=== PATIENT | male | born 1990 | race Caucasian/White ===

== ENCOUNTER 2022-07-17 06:55 | Inpatient (IN) ==
[2022-07-17] MEDS ORDERED: SODIUM CHLORIDE 0.9% 1000ML 1,000 ML IV STA (07:05)
[2022-07-17] MEDS ORDERED: ONDANSETRON INJ 2 MG/ML 2 ML VIAL IV STA ×2 (07:05→08:20)
[2022-07-17] MEDS ORDERED: SODIUM CHLORIDE 0.9% 1000ML 1,000 ML IV ONE (07:07)
--- NOTE | 2022-07-17 07:16 | Emergency Department Note ---
Impression & Plan Cardiac arrest, Cardiac arrest with ventricular fibrillation ED Provider Note INFORMANT: Patient and EMS ED PROVIDER(S): Warren Rooney DO CHIEF COMPLAINT: Cardiac arrest PLAN: Disposition: Admission Outpatient prescription management: none Discussion with: I spoke with the hospitalist, who will see the patient for admission/observation and further evaluation and consultation. MEDICAL DECISION MAKING: This is a 32-year-old male who presents to the ED status post cardiac arrest. History is obtained from EMS. EMS report that the patient at 0555 hrs. they were dispatched for a cardiac arrest. CPR was in progress at that time. Police arrived on scene at 6:06 AM and AED advised shock. The patient was shocked twice. When EMS arrived, he was awake but lethargic in atrial fibrillation. He was also having some frequent PVCs. They administered some Ativan 2 mg IV for agitation and lidocaine 100 mg IV. He was transported here without further incident. Per EMS, the patient has no past medical problems. The patient also denies any medical issues. He takes no medications. Previous alcohol use but none in 5 years. Per the , the patient awoke her in the middle of the night gasping for air as if he was short of breath. Short time later, he appeared to stop breathing and 911 was called. They advised to start chest compressions, which she did. Patient on my evaluation is a little somnolent although he does respond appropriately to questioning. He states that he just does not feel right when questioned what is bothering him. He does report some shortness of breath. Vital signs are stable. The patient's twelve-lead EKG here shows a nor mal sinus rhythm at a rate of 79. No ST elevations. No acute ischemic changes. Her lactic acid was elevated 4.7 likely due to transient perfusion issues. The white blood cell count is elevated at 25,000 likely related to stress. His potassium was slightly low at 3.3. Creatinine is slightly elevated 1.44, AST and ALT are slightly elevated at 203 and 286 respectively. Troponin is mildly elevated at 45. A D-dimer was elevated. CT scan of the chest did not show PE or pneumonia. CT scan of the brain did not show any acute process. Chest x-ray was negative for acute disease. The patient remained in the ED without any arrhythmias. He remained hemodynamically stable. He is awake and alert. He occasionally feels short of breath. No chest pains. I did speak with Dr. Echevarria from cardiology. He will see the patient in consultation for cardiac cath. I spoke with the hospitalist, who will see the patient for further evaluation and care as well. Triage Nursing notes reviewed. Vital Signs: reviewed Prior /Outside records reviewed: none Differential diagnosis: Arrhythmia, PE, pneumothorax, infection such as pneumonia, myocardial infarction, myocarditis, pulmonary embolism, other Diagnostics, as interpreted by me: 12 lead ECG: Normal sinus rhythm rate of 79. No ST elevation. No PVCs. Normal QTc Cardiac Monitoring ordered: Normal sinus rhythm Medical decision rules: none Imaging studies: Chest x-ray: No acute disease. Poor inspiration. Procedures: none. Critical care: I have personally spent 30 minutes of critical care time in the direct management of this patient. This includes bedside care, interpretation of diagnostic studies, and testing, discussion with consultants, patient, and family members, and other required patient management activities. This 30 minutes is in excess of all separately billable procedures. HPI: See MDM above. PAST MEDICAL HISTORY: See Below PAST SURGICAL HISTORY: See Below SOCIAL HISTORY: See Below HOME MEDICATIONS: See Below ALLERGIES: See Below VITALS: See Below PHYSICAL EXAMINATION: See MDM for positive findings otherwise unremarkable. CONSTITUTIONAL/VITAL SIGNS: Reviewed GENERAL: Patient seems mildly anxious very agitated but otherwise in no distress INTEGUMENTARY: done as appropriate HEAD: Normal EYES: Pupils are equal and reactive RESPIRATORY: Lungs are clear. Occasionally gasp for breath as if short of breath. CARDIOVASCULAR: Regular rate and rhythm GI/ABDOMEN: Soft and nontender EXTREMITIES: Strong symmetrical pulses NEUROLOGICAL: Awake. Answers questions appropriately. Seems tired. PSYCHIATRIC: Normal MUSCULOSKELETAL: Normally developed TRIAGE NURSING DOCUMENTATION REVIEWED. Past Med/Surg History Social History Smoking Status: Never smoker Hx Substance Use: No Preferred Language: Mauritanian Allergies Allergies Allergy/AdvReac Type Severity Reaction Status Date / Time No Known Allergies Allergy Unknown Unverified 07/17/22 08:05 [id number] Allergy Unknown Unknown Uncoded 07/17/22 08:05 Home Meds Home Medications Medication Instructions Recorded Confirmed No Known Home Medications 07/17/22 07/17/22 Results & Data (ED) Vital Signs Vital Signs - 24 hr 07/17/22 07:11 07/17/22 08:05 07/17/22 08:10 Temperature 36.7 C Temperature Source Oral Pulse Rate 86 Pulse Rate [Apical] Pulse Rate from SpO2 Sensor Respiratory Rate 22 Respiratory Depth Normal Blood Pressure 138/74 Blood Pressure [Right Arm] Blood Pressure Mean 95 Blood Pressure Mean [Right Arm] Blood Pressure Position [Right Arm] Pulse Oximetry 97 97 98 Oxygen Delivery Method Nasal Cannula Nasal Cannula Nasal Cannula Oxygen Flow Rate 2 2 2 Sepsis Recent Fever Within 48 Hours No Sepsis New/Unexplained Change in Mental Status No Sepsis Action Taken by Nursing No Action Required 07/17/22 08:09 07/17/22 07:09 07/17/22 07:15 Temperature Temperature Source Pulse Rate 86 79 85 Pulse Rate [Apical] Pulse Rate from SpO2 Sensor 79 84 Respiratory Rate 25 H 19 Respiratory Depth Blood Pressure Blood Pressure [Right Arm] Blood Pressure Mean Blood Pressure Mean [Right Arm] Blood Pressure Position [Right Arm] Pulse Oximetry 95 97 Oxygen Delivery Method Oxygen Flow Rate Sepsis Recent Fever Within 48 Hours Sepsis New/Unexplained Change in Mental Status Sepsis Action Taken by Nursing 07/17/22 07:15 07/17/22 07:30 07/17/22 08:02 Temperature Temperature Source Pulse Rate 84 89 Pulse Rate [Apical] Pulse Rate from SpO2 Sensor 77 89 Respiratory Rate 18 Respiratory Depth Blood Pressure 138/74 Blood Pressure [Right Arm] Blood Pressure Mean 95 Blood Pressure Mean [Right Arm] Blood Pressure Position [Right Arm] Pulse Oximetry 97 100 Oxygen Delivery Method Nasal Cannula Nasal Cannula Oxygen Flow Rate 2 2 Sepsis Recent Fever Within 48 Hours Sepsis New/Unexplained Change in Mental Status Sepsis Action Taken by Nursing 07/17/22 08:03 07/17/22 08:03 07/17/22 08:41 Temperature Temperature Source Pulse Rate 89 Pulse Rate [Apical] Pulse Rate from SpO2 Sensor 89 Respiratory Rate 21 Respiratory Depth Blood Pressure 136/77 Blood Pressure [Right Arm] Blood Pressure Mean 96 Blood Pressure Mean [Right Arm] Blood Pressure Position [Right Arm] Pulse Oximetry 100 100 Oxygen Delivery Method Nasal Cannula Nasal Cannula Oxygen Flow Rate 2 2 Sepsis Recent Fever Within 48 Hours Sepsis New/Unexplained Change in Mental Status Sepsis Action Taken by Nursing 07/17/22 08:30 Temperature Temperature Source Pulse Rate Pulse Rate [Apical] 90 Pulse Rate from SpO2 Sensor Respiratory Rate 22 Respiratory Depth Normal Blood Pressure Blood Pressure [Right Arm] 123/81 Blood Pressure Mean Blood Pressure Mean [Right Arm] 95 Blood Pressure Position [Right Arm] Sitting Pulse Oximetry 100 Oxygen Delivery Method Room Air Oxygen Flow Rate Sepsis Recent Fever Within 48 Hours Sepsis New/Unexplained Change in Mental Status Sepsis Action Taken by Nursing Laboratory Data 07/17/22 07:05 07/17/22 07:05 Lab Results 07/17/22 07/17/22 07/17/22 Range/Units 07:05 07:05 07:05 WBC 25.09 H (4.8-10.8) K/ul RBC 5.11 (4.70-6.10) M/uL Hgb 15.5 (14.0-18.0) g/dl POC Hgb (14.0-18.0) g/dl Hct 44.9 (42.0-52.0) % POC Hct (42-52) % MCV 87.9 (80.0-100.0) fL MCH 30.3 (25.0-34.0) pg MCHC 34.5 (32.0-36.0) g/dL RDW Std Deviation 40.5 (36.4-46.3) fL RDW Coeff of Ernestina 12.7 (11.5-14.5) % Plt Count 259 (130-400) K/uL MPV 11.2 (9.4-12.4) fL Immature Gran % (Auto) 6.5 % Neut % (Auto) 70.0 % Lymph % (Auto) 18.2 % [place] % (Auto) 3.7 % Eos % (Auto) 1.0 % Baso % (Auto) 0.6 % Neut # (Auto) 17.55 H (1.40-6.50) K/uL Lymph # (Auto) 4.57 H (1.2-3.4) K/uL [place] # (Auto) 0.92 H (0.11-0.59) K/uL Eos # (Auto) 0.25 (0-0.50) K/uL Baso # (Auto) 0.16 (0-0.2) K/uL Immature Gran # (Auto) 1.64 H (0.01-0.20) K/uL PT 11.2 (9.0-12.0) Seconds INR 1.1 (0.9-1.1) APTT 24.2 (21.0-31.0) Seconds PTT Ratio 0.9 D-Dimer 1660 H* (0-500) ug/L FEU POC Sodium (135-144) mmol/L Sodium 138 (136-145) mmol/L POC Potassium (3.3-5.0) mmol/L Potassium 3.3 L (3.5-5.1) mmol/L POC Chloride (101-112) mmol/L Chloride 106 (98-107) mmol/L Carbon Dioxide 21 (21-32) mmol/L POC Total CO2 (24-31) mmol/L Anion Gap 11 (3-11) POC Anion Gap (16-25) mmol/L POC BUN (7-18) mg/dl BUN 21 (6-23) mg/dl Creatinine 1.44 H (0.6-1.4) mg/dl POC Creatinine (0.6-1.3) mg/dl Est Cr Clr Drug Dosing Not Reportable Est GFR ( Amer) 73.4 ml/min Est GFR (Non-Af Amer) 63.4 ml/min BUN/Creatinine Ratio 14.6 (10-20) Glucose 180 H (70-99(Fasting)) mg/dl POC Glucose (other) (70-99) mg/dl Lactate (0.4-2.0) mmol/L Calcium 8.3 L (8.5-10.1) mg/dl POC Ioniz Calcium Sulma (1.12-1.32) mmol/l Magnesium 1.9 (1.7-2.4) mg/dl Total Bilirubin 0.5 (0.2-1.0) mg/dl AST 203 H (13-39) U/L ALT 286 H (7-52) U/L Alkaline Phosphatase 70 (34-104) U/L Troponin I High Sens 47.5 H (0-20) pg/ml Total Protein 6.4 (6.0-8.3) gm/dl Albumin 3.7 (3.4-5.0) gm/dl Globulin 2.7 (2.5-4.0) gm/dl Albumin/Globulin Ratio 1.4 (0.9-2) Lipase 33 (11-82) U/L SARS-CoV-2, RNA, NAAT (NEGATIVE) 07/17/22 07/17/22 07/17/22 Range/Units 07:05 07:18 08:06 WBC (4.8-10.8) K/ul RBC (4.70-6.10) M/uL Hgb (14.0-18.0) g/dl POC Hgb 15.3 (14.0-18.0) g/dl Hct (42.0-52.0) % POC Hct 45 (42-52) % MCV (80.0-100.0) fL MCH (25.0-34.0) pg MCHC (32.0-36.0) g/dL RDW Std Deviation (36.4-46.3) fL RDW Coeff of Renestina (11.5-14.5) % Plt Count (130-400) K/uL MPV (9.4-12.4) fL Immature Gran % (Auto) % Neut % (Auto) % Lymph % (Auto) % [place] % (Auto) % Eos % (Auto) % Baso % (Auto) % Neut # (Auto) (1.40-6.50) K/uL Lymph # (Auto) (1.2-3.4) K/uL [place] # (Auto) (0.11-0.59) K/uL Eos # (Auto) (0-0.50) K/uL Baso # (Auto) (0-0.2) K/uL Immature Gran # (Auto) (0.01-0.20) K/uL PT (9.0-12.0) Seconds INR (0.9-1.1) APTT (21.0-31.0) Seconds PTT Ratio D-Dimer (0-500) ug/L FEU POC Sodium 140 (135-144) mmol/L Sodium (136-145) mmol/L POC Potassium 3.2 L (3.3-5.0) mmol/L Potassium (3.5-5.1) mmol/L POC Chloride 104 (101-112) mmol/L Chloride (98-107) mmol/L Carbon Dioxide (21-32) mmol/L POC Total CO2 21 L (24-31) mmol/L Anion Gap (3-11) POC Anion Gap 19.0 (16-25) mmol/L POC BUN 21 H (7-18) mg/dl BUN (6-23) mg/dl Creatinine (0.6-1.4) mg/dl POC Creatinine 1.5 H (0.6-1.3) mg/dl Est Cr Clr Drug Dosing Est GFR ( Amer) ml/min Est GFR (Non-Af Amer) ml/min BUN/Creatinine Ratio (10-20) Glucose (70-99(Fasting)) mg/dl POC Glucose (other) 177 H (70-99) mg/dl Lactate 4.7 H* (0.4-2.0) mmol/L Calcium (8.5-10.1) mg/dl POC Ioniz Calcium Sulma 1.12 (1.12-1.32) mmol/l Magnesium (1.7-2.4) mg/dl Total Bilirubin (0.2-1.0) mg/dl AST (13-39) U/L ALT (7-52) U/L Alkaline Phosphatase (34-104) U/L Troponin I High Sens (0-20) pg/ml Total Protein (6.0-8.3) gm/dl Albumin (3.4-5.0) gm/dl Globulin (2.5-4.0) gm/dl Albumin/Globulin Ratio (0.9-2) Lipase (11-82) U/L SARS-CoV-2, RNA, NAAT NEGATIVE (NEGATIVE) Administered Medications Discontinued Medications Sodium Chloride (Nss 1000ml) 1,000 mls @ 999 mls/hr IV .Q1H1M STA Stop: 07/17/22 08:05 Last Admin: 07/17/22 08:04 Dose: 999 mls/hr Documented By: AMALIA Sodium Chloride (Nss 1000ml) 1,000 mls @ 999 mls/hr IV .Q1H1M ONE Stop: 07/17/22 08:07 Last Admin: 07/17/22 08:29 Dose: 999 mls/hr Documented By: AMALIA Ioversol (Optiray 320 500ml) 116 ml IV ONCE ONE Stop: 07/17/22 08:05 Last Admin: 07/17/22 07:54 Dose: 116 ml Documented By: JENSEN Ondansetron HCl (Ondansetron Inj 2 Mg/Ml 2 Ml Vial) 4 mg IV NOW STA Stop: 07/17/22 07:06 Last Admin: 07/17/22 08:04 Dose: 4 mg Documented By: AMALIA Ondansetron HCl (Ondansetron Inj 2 Mg/Ml 2 Ml Vial) 4 mg IV NOW STA Stop: 07/17/22 08:21 Last Admin: 07/17/22 08:29 Dose: 4 mg Documented By: AMALIA Imaging Data Radiologist's Impression: Head CT 07/17/22 07:05 CT head/brain wo con CLINICAL HISTORY: s/p cardiac arrest Technique: Contiguous axial CT images of the head were acquired from the base of the skull to the vertex without intravenous contrast administration. Images were viewed in brain, subdural and bone windows. Automated dose lowering techniques and/or adjustment according to patient size were utilized for this exam. Comparison: None available at the time of this dictation. Findings: The ventricles, basal cisterns, and cerebral sulci are normal. There is no acute intracranial hemorrhage or evidence of acute territorial infarction. Neither mass effect, shift of the midline structures, nor abnormal extra-axial fluid collections are shown. Mucous retention cysts are seen in the bilateral maxillary sinus. The orbits appear normal. There are no acute fractures of the calvaria or scalp swelling. Impression: No acute intracranial hemorrhage, no evidence of acute territorial infarction or other acute intracranial disease process. ACT 112: Negative or not required by law. Electronically signed by: Rafael Ríos M.D. 07/17/2022 8:05 AM Chest CTA 07/17/22 07:06 CT angio chest PE protocol CLINICAL HISTORY: Chest Pain, eval for PE TECHNIQUE: Multidetector row helical CT of the chest was performed with elmer ographic protocol. Coronal and sagittal reformations were obtained. Coronal and sagittal MIPS were obtained from the axial data set and were submitted for review. Automated dose lowering techniques and/or adjustment according to patient size were utilized for this exam. CT DOSE: 1732.30 mGy.cm Comparison: None available at the time of this dictation. FINDINGS: Lungs and pleura: Atelectasis versus scarring is seen in the dependent portions of the lungs. Heart and pericardium: There is cardiomegaly without evidence of pericardial effusion. Vessels: Evaluation for pulmonary embolism is limited due to patient motion. No evidence of central, lobar, or segmental embolus. Mediastinum and nighat: Unremarkable. Chest wall and lower neck: Subcentimeter thyroid nodules are noted which do not require follow-up by ACR criteria. Abdomen: Unremarkable. Bones: Mild degenerative changes are seen in the spine. IMPRESSION: Limited exam without evidence of central, lobar, or segmental embolus. ACT 112: Negative or not required by law. Electronically signed by: Rafael Ríos M.D. 07/17/2022 8:03 AM Chest X-Ray 07/17/22 07:06 XR chest 1V portable CLINICAL HISTORY: Chest pain, nonspecific TECHNIQUE: Single frontal radiograph of the chest was obtained. Comparison: Comparison is made to rib series 01/25/2022 FINDINGS: No lines and tubes are seen. Cardiomegaly is noted. Lungs are underinflated but clear. No evidence of pleural effusion or pneumothorax. IMPRESSION: No acute chest disease. ACT 112: Negative or not required by law. Electronically signed by: Rafael Ríos M.D. 07/17/2022 7:20 AM Chest X-Ray 07/17/22 08:05 SINGLE VIEW CHEST CLINICAL HISTORY: Respiratory illness. FINDINGS: An AP, portable, upright chest radiograph is compared to chest x-ray and chest CT performed earlier the same day 07/17/2022. The cardiomediastinal silhouette is unremarkable. There are bibasilar opacities, left greater than right. No large pleural effusion or pneumothorax is seen. The bony thorax is grossly intact. IMPRESSION: 1. There are bibasilar airspace opacities, left greater than right. This could represent atelectasis and/or mild pneumonitis. Clinical correlation will be required and radiographic follow-up to resolution is recommended. 2. No pleural effusion is seen. ACT 112: Negative or not required by law. Electronically signed by: Patricio Malave M.D. 07/17/2022 8:44 AM Discharge Plan Visit Data Chief Complaint: Cardiac Arrest/CPR Stated Complaint: POST CARDIAC ARREST ED Provider: Warren Rooney Discharge Problem: Cardiac arrest, Cardiac arrest with ventricular fibrillation Forms Stand Alone Forms: [facility], [facility], [facility], Important Visit Information Prescriptions Prescriptions: No Action No Known Home Medications Referrals Referrals: PCP,NO [Physician] -
--- NOTE | 2022-07-17 07:21 | XRay Report ---
XR chest 1V portable CLINICAL HISTORY: Chest pain, nonspecific TECHNIQUE: Single frontal radiograph of the chest was obtained. Comparison: Comparison is made to rib series 01/25/2022 FINDINGS: No lines and tubes are seen. Cardiomegaly is noted. Lungs are underinflated but clear. No evidence of pleural effusion or pneumothorax. IMPRESSION: No acute chest disease. ACT 112: Negative or not required by law. Electronically signed by: Rafael Ríos M.D. 07/17/2022 7:20 AM
[2022-07-17 07:30] LABS: Hematocrit (blood only) 44.9 % (42.0-52.0); Hemoglobin 15.5 g/dl (14.0-18.0); Mean Corpuscular Hemoglobin 30.3 pg (25.0-34.0); Mean Corpuscular Hgb Conc 34.5 g/dL (32.0-36.0); Mean Corpuscular Volume 87.9 fL (80.0-100.0); Mean Platelet Volume 11.2 fL (9.4-12.4); Platelet Count 259 K/uL (130-400); RDW Coefficient of Variation 12.7 % (11.5-14.5); RDW Standard Deviation 40.5 fL (36.4-46.3); Red Blood Count 5.11 M/uL (4.70-6.10); White Blood Count 25.09 K/ul (4.8-10.8)
[2022-07-17 07:32] LABS: iSTAT Creatinine 1.5 mg/dl (0.6-1.3); iSTAT Hemoglobin 15.3 g/dl (14.0-18.0); iSTAT Ionized Calcium 1.12 mmol/l (1.12-1.32); iSTAT Potassium 3.2 mmol/L (3.3-5.0)
[2022-07-17 07:39] LABS: INR 1.1 (0.9-1.1); Partial Thromboplastin Ratio 0.9; Partial Thromboplastin Time 24.2 Seconds (21.0-31.0); Prothrombin Time 11.2 Seconds (9.0-12.0)
[2022-07-17 07:51] LABS: Alanine Aminotransferase 286 U/L (7-52); Albumin Globulin Ratio 1.4 (0.9-2); Albumin Level 3.7 gm/dl (3.4-5.0); Alkaline Phosphatase 70 U/L (34-104); Anion Gap 11 (3-11); Aspartate Aminotransferase 203 U/L (13-39); BUN Creatinine Ratio 14.6 (10-20); Bilirubin,Total 0.5 mg/dl (0.2-1.0); Blood Urea Nitrogen 21 mg/dl (6-23); Calcium 8.3 mg/dl (8.5-10.1); Carbon Dioxide 21 mmol/L (21-32); Chloride 106 mmol/L (98-107); Est GFR (African American) 73.4 ml/min; Est GFR (Non-African American) 63.4 ml/min; Globulin 2.7 gm/dl (2.5-4.0); Glucose 180 mg/dl (70-99(Fasting)); Lipase 33 U/L (11-82); Potassium 3.3 mmol/L (3.5-5.1); Sodium 138 mmol/L (136-145); Total Protein 6.4 gm/dl (6.0-8.3)
[2022-07-17 07:57] LABS: Troponin I High Sensitivity 47.5 pg/ml (0-20)
[2022-07-17] MEDS ORDERED: OPTIRAY 320 500ml IV ONE (08:04)
--- NOTE | 2022-07-17 08:05 | CT Scan Report ---
CT angio chest PE protocol CLINICAL HISTORY: Chest Pain, eval for PE TECHNIQUE: Multidetector row helical CT of the chest was performed with angiographic protocol. Lau l and sagittal reformations were obtained. Coronal and sagittal MIPS were obtained from the axial irvin a set and were submitted for review. Automated dose lowering techniques and/or adjustment according to patient size were utilized for this exam. CT DOSE: 1732.30 mGy.cm Comparison: None available at the time of this dictation. FINDINGS: Lungs and pleura: Atelectasis versus scarring is seen in the dependent portions of the lungs. Heart and pericardium: There is cardiomegaly without evidence of pericardial effusion. Vessels: Evaluation for pulmonary embolism is limited due to patient motion. No evidence of central, lobar, or segmental embolus. Mediastinum and nighat: Unremarkable. Chest wall and lower neck: Subcentimeter thyroid nodules are noted which do not require follow-up by ACR criteria. Abdomen: Unremarkable. Bones: Mild degenerative changes are seen in the spine. IMPRESSION: Limited exam without evidence of central, lobar, or segmental embolus. ACT 112: Negative or not required by law. Electronically signed by: Rafael Ríos M.D. 07/17/2022 8:03 AM
--- NOTE | 2022-07-17 08:06 | CT Scan Report ---
CT head/brain wo con CLINICAL HISTORY: s/p cardiac arrest Technique: Contiguous axial CT images of the head were acquired from the base of the skull to the francisco javier robert without intravenous contrast administration. Images were viewed in brain, subdural and bone [facility]. Automated dose lowering techniques and/or adjustment according to patient size were utilized for this exam. Comparison: None available at the time of this dictation. Findings: The ventricles, basal cisterns, and cerebral sulci are normal. There is no acute intracranial hemorrh age or evidence of acute territorial infarction. Neither mass effect, shift of the midline structures , nor abnormal extra-axial fluid collections are shown. Mucous retention cysts are seen in the bilateral maxillary sinus. The orbits appear normal. There ar e no acute fractures of the calvaria or scalp swelling. Impression: No acute intracranial hemorrhage, no evidence of acute territorial infarction or other acute intracra nial disease process. ACT 112: Negative or not required by law. Electronically signed by: Rafael Ríos M.D. 07/17/2022 8:05 AM
[2022-07-17 08:13] LABS: D Dimer 1660 ug/L FEU (0-500)
[2022-07-17 08:17] LABS: Basophils # (auto) 0.16 K/uL (0-0.2); Basophils % (auto) 0.6 %; Eosinophils # (auto) 0.25 K/uL (0-0.50); Immature Granulocytes # (auto) 1.64 K/uL (0.01-0.20); Immature Granulocytes % (auto) 6.5 %; Lymphocytes # (auto) 4.57 K/uL (1.2-3.4); Lymphocytes % (auto) 18.2 %; Monocytes # (auto) 0.92 K/uL (0.11-0.59); Monocytes % (auto) 3.7 %; Neutrophils # (auto) 17.55 K/uL (1.40-6.50)
[2022-07-17 08:33] LABS: Magnesium 1.9 mg/dl (1.7-2.4)
[2022-07-17] MEDS ORDERED: ALUMINUM/MAGNESIUM SUSP 30 ML UDC PO PRN (08:35)
[2022-07-17] MEDS ORDERED: MAGNESIUM HYDROXIDE SUSP 30 ML UDC PO PRN (08:35)
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
--- NOTE | 2022-07-17 08:46 | XRay Report ---
SINGLE VIEW CHEST CLINICAL HISTORY: Respiratory illness. FINDINGS: An AP, portable, upright chest radiograph is compared to chest x-ray and chest CT performed earlier the same day 07/17/2022. The cardiomediastinal silhouette is unremarkable. There are bibasila r opacities, left greater than right. No large pleural effusion or pneumothorax is seen. The bony tho rax is grossly intact. IMPRESSION: 1. There are bibasilar airspace opacities, left greater than right. This could represent atelectasis and/or mild pneumonitis. Clinical correlation will be required and radiographic follow-up to resoluti on is recommended. 2. No pleural effusion is seen. ACT 112: Negative or not required by law. Electronically signed by: Patricio Malave M.D. 07/17/2022 8:44 AM
[2022-07-17] MEDS: POTASSIUM CHLORIDE / WTR 10 MEQ/100 ML PLCT IV SCH ×5 (09:24→23:54)
[2022-07-17 09:49] LABS: Amphetamines+Metham, Urine Neg (Neg); Barbiturates, Urine Neg (Neg); Benzodiazepine, Urine Neg (Neg); Cocaine, Urine Neg (Neg); MDMA (Ecstacy), Urine Neg (Neg); Methadone, Urine Neg (Neg); Opiate, Urine Neg (Neg); Phencyclidine, Urine Neg (Neg)
[2022-07-17 09:58] LABS: Appearance Urine Cloudy (Clear); Bilirubin Urine Negative (Negative); Blood Urine 2+ (Negative); Color Urine Yellow; Glucose Urine UA Trace (Negative); Ketones Urine Negative (Negative); Leukocyte Esterase Urine Negative (Negative); Nitrite Urine Negative (Negative); Specific Gravity Urine 1.019 (1.000-1.030); Urobilinogen Urine Negative (Negative); WBC Urine Automated >30 /hpf (0-5); pH Urine 7.5 (4.5-7.5)
[2022-07-17 10:04] LABS: Estimated Average Glucose 94 mg/dl; Hemoglobin A1C 4.9 % (4.5-5.6)
[2022-07-17] MEDS ORDERED: LIDOCAINE 5% 1 PATCH TD STA (10:12)
[2022-07-17 10:25] LABS: Protein Urine 3+ (Negative)
[2022-07-17] MEDS: SODIUM CHLORIDE 0.9% 1000ML 1,000 ML IV SCH ×2 (10:30→16:17)
[2022-07-17 10:31] LABS: Sperm Urine Present (None Prsent)
[2022-07-17 10:34] LABS: Bacteria Urine Automated 1+ (Negative)
--- NOTE | 2022-07-17 10:37 | XCELERA ---
[id number]
[2022-07-17 11:29] LABS: Chol HDL Ratio 5.8 (0-5)
[2022-07-17] MEDS ORDERED: NITROGLYCERIN/D5W 100MCG/ML 20ML SYR ONE (11:46)
[2022-07-17] MEDS ORDERED: niCARdipine HCL INJ 2.5 MG/ML 10 ML AMP ONE (11:46)
[2022-07-17] MEDS ORDERED: MIDAZOLAM HCL 1 MG/ML 2ML VIAL ONE (11:46)
[2022-07-17] MEDS ORDERED: fentaNYL citrate PF 100 MCG/2 ML VIAL ONE (11:46)
[2022-07-17] MEDS ORDERED: HEPARIN (PORCINE) 1000 UNIT/ML 10 ML (CATH LAB USE ONLY) ONE (11:46)
[2022-07-17] MEDS ORDERED: ONDANSETRON INJ 2 MG/ML 2 ML VIAL ONE ×2 (11:47→12:20)
--- NOTE | 2022-07-17 12:08 | Electrocardiogram Report ---
Test Reason : Blood Pressure : / mmHG Vent. Rate : 079 BPM Atrial Rate : 079 BPM P-R Int : 142 ms QRS Dur : 106 ms QT Int : 404 ms P-R-T Axes : 023 015 -06 degrees QTc Int : 463 ms Normal sinus rhythm Normal ECG No previous ECGs available Confirmed by Ron Muniz ([id number]) on 07/17/2022 12:08:14 PM Referred By: REFERRED SELF Confirmed By:Dami Muniz
[2022-07-17] MEDS ORDERED: NITROGLYCERIN SL 0.4 MG/TAB TAB ONE (12:36)
[2022-07-17] MEDS ORDERED: Heparin IV Adult Wt-Based Standard *NO* Bolus Protocol IV STA (13:34)
--- NOTE | 2022-07-17 13:34 | Post Anesthesia Assessment ---
Date of Service July 17, 2022 Post Sedation Assessment Vital Signs Temp Pulse Pulse Resp BP BP Pulse Ox 07/17/22 13:15 105 H 20 130/81 98 07/17/22 11:30 94 H 24 119/91 98 07/17/22 11:15 88 22 129/91 99 07/17/22 11:00 97 H 22 139/97 98 07/17/22 10:30 90 23 129/89 100 07/17/22 10:00 87 22 121/91 99 07/17/22 10:21 91 H 20 131/90 99 07/17/22 09:15 88 20 129/87 99 07/17/22 08:30 90 22 123/81 100 07/17/22 08:41 100 07/17/22 08:03 136/77 07/17/22 08:03 89 21 100 07/17/22 08:02 89 18 100 07/17/22 07:30 84 97 07/17/22 07:15 138/74 07/17/22 07:15 85 19 97 07/17/22 07:09 79 25 H 95 07/17/22 08:09 86 07/17/22 08:10 98 07/17/22 08:05 97 07/17/22 07:11 36.7 C 86 22 138/74 97 O2 Del Method O2 Flow Rate 07/17/22 13:15 Room Air 07/17/22 11:30 Nasal Cannula 4 07/17/22 11:15 Nasal Cannula 4 07/17/22 11:00 Nasal Cannula 4 07/17/22 10:30 2 07/17/22 10:00 07/17/22 10:21 Nasal Cannula 4 07/17/22 09:15 2 07/17/22 08:30 Room Air 07/17/22 08:41 Nasal Cannula 2 07/17/22 08:03 07/17/22 08:03 Nasal Cannula 2 07/17/22 08:02 Nasal Cannula 2 07/17/22 07:30 Nasal Cannula 2 07/17/22 07:15 07/17/22 07:15 07/17/22 07:09 07/17/22 08:09 07/17/22 08:10 Nasal Cannula 2 07/17/22 08:05 Nasal Cannula 2 07/17/22 07:11 Nasal Cannula 2 Recovery Score Activity: Moves 4 extremities Respiration: Deep Breath/Cough Circulation: +/-20% PreAnes Value Consciousness: Fully Awake Oxygen Saturation: > 92% On Room Air Post Anesthesia Score: 10 Discharge Sedation Level of Care: Phase I Post Sedation Plan On clinical assessment, the patient appears to have tolerated the sedation without complications. Patient is recovering as anticipated. Patient will continue to be monitored by nursing and may be discharged when sedation discharge criteria are met per below protocol. Upon Completions of procedure up to 15 minutes continue every 5 minute vital signs and the P.A.R. score; then discharge to a Phase I or Fast Track to Phase II per the following guidelines: * Discharge Patient to appropriate Phase II area if PAR is 8 or greater or return to pre- procedure baseline. The post - procedure orders will be as directed. * If PAR score is less than 8 or not return to pre-procedure baseline then patient will follow Phase I monitoring till PAR is reached for Phase II. The Phase I may be done in procedure room or may call to secure a Phase I area. * If naloxone or flumazenil are used for reversal, hold in Phase I for continued monitoring from when last reversal dose was given for a minimum of 60 minutes or longer pending the nurse and/or physician discretion of patient condition before discharge to Phase II. Please call the Sedation Physician to re-evaluate and complete post-note for discharge to Phase II area. Do NOT discharge from procedure sedation or Phase 1 until post- sedation evaluation note is complete by procedure /sedation MD Sedation Discharge Instructions to be given to the patient at discharge to home. [facility] Procedure Codes (Charges) Indication for Procedure Indication for procedure: cardiac arrest Sedation/Anesthesia Procedure 1: Sedation/Anesthesia: 31768 Mod Sedation by the same physician;Init15 Min Child Age 5 & Up (Initial 15-minute (total 45 minutes)) Total Sedation Time (minutes): 45 Procedure 2: Sedation/Anesthesia: 35469 Mod Sedation by the same physician; Ea [id number] Minutes (Additional 30 minutes) Total Sedation Time (minutes): 45
--- NOTE | 2022-07-17 13:44 | Cardiac Catheterization ---
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 Cardiac Status Clinical evaluation leading to the procedure CAD Presenation: Unstable angina (Cardiac arrest) Anginal Classification: No Symptoms Heart Failure: No Cardiogenic Shock within 24 Hours: No Cardiac Arrest within 24 Hours: Yes Imaging Studies Past 6 Months: Yes Stress Studies Past 6 Months: No Coronary Anatomy Dominant: Right Left Main (% Stenosis): Normal LAD (% Stenosis): Normal D1 (% Stenosis): Normal D2 (% Stenosis): Normal Circumflex (% Stenosis): Normal OM1 (% Stenosis): Normal OM2 (% Stenosis): Normal L PL1 (% Stenosis): Normal RCA (% Stenosis): Normal R PDA (% Stenosis): Normal R PL1 (% Stenosis): Normal Diagnostic Physicians Name: Moe Echevarria MD, PhD Closure Device Percutaneous Entry Location: Radial and femoral Closure Device: Angio-Seal and Radial Band Recommendations: Medical Therapy and/or Counseling Cardiac Cath Procedure Full Procedure Date July 17, 2022 Pre-Procedure Diagnosis Pre-Procedure Diagnosis: Cardiothoracic Symptom (Cardiac arrest) AUC Score AUC Score: 09 Post-Procedure Diagnosis Post-Procedure Diagnosis: Normal Coronary Arteries Procedure(s) Performed Procedure(s) Performed: Coronary Angiography and Ultrasound Guided Vascular Access Nodulizer Moe Echevarria MD, PhD Estimated Blood Loss Estimated Blood Loss: 10 mL Medication(s) Medication(s): Fentanyl, Heparin, Lidocaine 1%, Nicardipine, Nitroglycerin and Versed Summary of Findings Brief description: Patient was brought to the cardiac catheterization suite where he was shaved and prepped in a sterile fashion. Sedated using IV Versed and fentanyl. Soft tiss ues of the right wrist were anesthetized using 2 mL of 1% Xylocaine. The right radial artery was accessed with a modified Seldinger technique and a 6 Micronesian radial artery glide sheath was placed. Patient was provided anticoagulation with IV heparin and antispasmodics including nicardipine and nitroglycerin. All catheters were advanced and exchanged over a 0.035 J-tip wire. Attempts to engage the left main coronary with a 5 Micronesian [place] 4 diagnostic catheter were unsuccessful secondary to short and angulated ascending aorta and the innominate artery takeoff. Right coronary angiography was performed in orthogonal views with a 5 Micronesian JR4 diagnostic catheter. We attempted multiple catheters to engage the left main coronary including 6 Micronesian EBU 3.0 guide catheter, 5 Micronesian JL 3.5 diagnostic catheter, 5 Micronesian EBU 3.5 guide catheter, and a 5 Micronesian AL-1 diagnostic catheter. These were all unsuccessful. Therefore, we decided to proceed with femoral artery access. Soft tissues of the right groin were anesthetized using 10 mL of 1% Xylocaine. Using the ultrasound for guidance, the right femoral artery was accessed and a 5 Micronesian femoral artery sheath was placed. A 5 Micronesian JL 4 diagnostic catheter was advanced and used to engage the left main coronary. Multiple angiographic views were obtained. The diagnostic catheter was then removed. Limited right femoral artery angiography was performed to evaluate for closure. Findings were favorable, therefore the femoral sheath was exchanged for a 6 Micronesian Angio-Seal closure device. This was deployed in the recommended fashion. We obtained immediate hemostasis. Patient did have persistent pain but no bleeding. He was returned to the recovery area in stable condition. This ended the case. Coronary angiography findings: LMT: Large-caliber vessel bifurcating into the LAD and left circumflex. No angiographically evident disease. LAD: Large caliber and transapical. Provides several medium caliber septal branches and 2 medium caliber diagonal branches. Diffuse mild luminal irregularities. LCx: Large caliber and nondominant vessel. Travels in the AV groove where it gives a large caliber long OM1 followed by a small caliber long OM 2 and terminates as a large caliber branching posterior lateral. There is no more than mild luminal irregularities in the circumflex and its branches. RCA: Large caliber and dominant vessel. Provides a conus branch and the SA dann branch. There is an atrial branch and then a large RV marginal branch. Distally the vessel bifurcates into the PDA and PLB. Both of these vessels are large in caliber and the PLB has multiple branches. There is no angiographica lly evident disease in the RCA or its branches. Summary: 1. No angiographically significant coronary disease 2. Continue work-up for non-ACS etiologies of cardiac arrest Hemodynamics Rest Ao:: 105/81 mmHg Final Ao: 100/75 mmHg LV: Not performed Recommendations Recommendations: Medical Therapy and/or Counseling Radiation Exposure (mGy) 2411 mGy, 15.7 minutes fluoroscopy time Contrast (mls) 120 mL Procedural Complication(s) None Disposition Recovery Room\PACU I attest to the content of the Intraoperative Record and any orders documented therein. Any exceptions are noted below. [facility] Card Cath Procedure Codes Cardiac Catheterization Procedure 1: Cardiovascular Cath Procedures: 85824 Coronaries Therapeutic Services & Ancillary Procedure 1: Cardiovascular Tx and Anc Procedures: 02587 Ultrasonic Guidance Vascular Access Moderate Sedation Procedure 1: Sedation/Anesthesia: 68778 Mod Sedation by the same physician;Init15 Min Child Age 5 & Up (Initial 15-minute (total 45 min)) Procedure 2: Sedation/Anesthesia: 42231 Mod Sedation by the same physician; Ea [id number] Minutes (Additional 30-minute (total 45 minutes)) PG Care Time/CCT Total # of Minutes Spent Total Time Spent with Patient: Total time spent is greater than 50% in coordination of care (as documented) at patient's floor/unit and/or counseling patient:
--- NOTE | 2022-07-17 14:19 | Pre Anesthesia Assessment ---
Date of Service July 17, 2022 Pre Sedation Assessment Vital Signs Temp Pulse Pulse Resp BP BP BP 07/17/22 14:17 36.6 C 86 18 126/82 07/17/22 13:30 89 20 142/97 H 07/17/22 13:15 105 H 20 130/81 07/17/22 11:30 94 H 24 119/91 07/17/22 11:15 88 22 129/91 07/17/22 11:00 97 H 22 139/97 07/17/22 10:30 90 23 129/89 07/17/22 10:00 87 22 121/91 07/17/22 10:21 91 H 20 131/90 07/17/22 09:15 88 20 129/87 07/17/22 08:30 90 22 123/81 07/17/22 08:41 07/17/22 08:03 136/77 07/17/22 08:03 89 21 07/17/22 08:02 89 18 07/17/22 07:30 84 07/17/22 07:15 138/74 07/17/22 07:15 85 19 07/17/22 07:09 79 25 H 07/17/22 08:09 86 07/17/22 08:10 07/17/22 08:05 07/17/22 07:11 36.7 C 86 22 138/74 Pulse Ox O2 Del Method O2 Flow Rate 07/17/22 14:17 97 Room Air 07/17/22 13:30 96 Room Air 07/17/22 13:15 98 Room Air 07/17/22 11:30 98 Nasal Cannula 4 07/17/22 11:15 99 Nasal Cannula 4 07/17/22 11:00 98 Nasal Cannula 4 07/17/22 10:30 100 2 07/17/22 10:00 99 07/17/22 10:21 99 Nasal Cannula 4 07/17/22 09:15 99 2 07/17/22 08:30 100 Room Air 07/17/22 08:41 100 Nasal Cannula 2 07/17/22 08:03 07/17/22 08:03 100 Nasal Cannula 2 07/17/22 08:02 100 Nasal Cannula 2 07/17/22 07:30 97 Nasal Cannula 2 07/17/22 07:15 07/17/22 07:15 97 07/17/22 07:09 95 07/17/22 08:09 07/17/22 08:10 98 Nasal Cannula 2 07/17/22 08:05 97 Nasal Cannula 2 07/17/22 07:11 97 Nasal Cannula 2 Cardiovascular RRR, no murmur, no edema Respiratory normal respiratory effort, lungs clear to auscultation Pre-Sedation Airway Assessment Smoking Status: Never smoker Mallampati 3 ASA 4 Notes The planned sedation has been discussed with the patient. Informed Consent was obtained. I have identified the patient, determined the appropriateness of sedation and have assessed the patient immediately prior to the procedure. All medicine(s) and interventions are by my order. [facility] [place]odes ([place]arges) Indication for Procedure Indication for procedure: Cardiac arrest
[2022-07-17 14:40] LABS: Base Excess ABG -3.7 mEq/L (-9-1.8); HCO3 ABG 21 mmol/L (19-24); PCO2 ABG 35 mmHg (35-46); PO2 ABG 88 mmHg (80-95); pH ABG 7.38 (7.35-7.45)
--- NOTE | 2022-07-17 14:41 | Cardiology Consultation ---
Date of Consultation July 17, 2022 Assessment & Plan (1) Cardiac arrest with ventricular fibrillation: Unclear etiology. Cardiac cath has eliminated ACS as cause. May have been primary arrhythmic event, may be secondary to pulmonary embolism, hypokalemia, or sleep apnea induced. Does not take any medications and talk screen is negative so a drug effect is unlikely. I would check his magnesium. His EF is normal and there is no evidence of prolonged QT, Brugada syndrome, or HOCM. Continue work-up for all of the above. Ultimately, this may have been a primary arrhythmic event which will require ICD implantation. (2) Elevated d-dimer: EKG is suggestive of pulmonary embolism with S1, Q3, and borderline T3. CTA chest was of limited quality. May be reasonable to reassess for PE by repeat CTA or VQ scan tomorrow. Would empirically treat with heparin drip until adequate imaging is completed. Risk factors for VTE are family history of VTE. He has had no recent surgeries, injuries, and no prior history of VTE. Hypercoagulability work-up is reasonable at this time. Even in the absence of known clot. (3) Altered mental status: Likely an anoxic injury postarrest but would also exclude intracranial hemorrhage. A noncontrast enhanced CT could be done to look for bleed. More complete evaluation by MRI of the brain could be done later or if preferred now. Not sure that he will cooperate with MRI at this time. Also, may have UTI given findings on urinalysis which certainly could exacerbate mental status change. (4) Hypokalemia: Potassium around 3.2-3.3 on admission. Certainly this could trigger VT/V-fib in the right setting. Unclear why he was hypokalemic. May be related to acute kidney injury but I suspect the kidney injury occurred postarrest. We should also check a magnesium. Replenish potassium to keep within normal limits. (5) ALEXANDRO (acute kidney injury): Modest decrease in GFR. We are limiting IVP contrast. Gentle fluid resuscitation with normal saline is recommended. Monitor carefully. (6) UTI (urinary tract infection): He has elevated white blood cell count, the urine shows RBCs, WBCs, and bacteria. There is urine protein but the leukocyte Estrace and nitrite is negative. Urine culture is reasonable. (7) Leukocytosis: Unclear etiology. Could be a nonspecific stress response but seems rather robust. Also, there is elevation in neutrophils, lymphocytes, and monocytes. This should be followed and investigated further. Plan We will follow. We need to determine the cause of the cardiac arrest. V-fib can be the result of multiple different processes. Ultimately, he may require ICD implantation. History of Present Illness Reason for Consultation: Cardiac arrest Attending Physician: Jocelyn Klein MD History of Present Illness 32-year-old morbidly obese gentleman without prior cardiac history whom I am asked to see for cardiac arrest. Patient was asleep at home. His awoke noting that he was having difficulty breathing. He did not respond to her verbal communication. She got out of bed and turn the light on and he had stopped breathing. She called 911 after trying to awaken him and he was unresponsive. She then lowered his legs to the floor followed by his head and began CPR. EMS arrived around 11 minutes later and administered defibrillatory shock for ventricular fibrillation. Patient had return of spontaneous circulation. He was transported to the emergency department for further work-up and management. He had no anginal chest pain and no ischemic EKG changes. He did have pain in his chest and all over from CPR. His mental status was also altered. His states that he kept asking the same questions and could not remember what she told him. Unfortunately, he cannot remember any events from the day and does not recall what day it is or if he has had any chest pains or preceding his episode. According to the for the past year or so he has had intermittent episodes of chest discomfort and shortness of breath but these are not consistent with exertion and he can go several weeks without reporting any symptoms to her. 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 At the time of my evaluation he denied chest pain, shortness of breath, syncope, near syncope, orthopnea, PND, racing heartbeat, palpitations, or edema. He admitted that he was confused and could not remember things. His informs me that he had undergone recent echocardiogram and there was question about apnea occurring and leading to seizures. Also, his brother is in attendance and tells me that their father in his 50s. He had cardiac disease but actually of an infection which he developed after being diagnosed with cancer. The brother also tells me that their paternal grandfather is and from cardiac disease in his 50s. Their paternal grandmother is alive and confirms that she has had recurrent DVTs and PEs. The patient's brother is unsure if the aunts and uncles had blood clots or coronary disease. Patient does not smoke or use tobacco. Denies illicit drug use. Patient was taken to the cardiac catheterization suite for definitive evaluation of his coronary arteries. This revealed normal coronaries. He also had an echocardiogram with low normal EF and no definitive regional wall motion abnormalities. No significant valvular pathology. Of note, patient's D-dimer was over 1600 and his CTA of the chest was of limited quality secondary to movement, etc. Therefore, cannot exclude pulmonary embolism. The right ventricle on echocardiogram could not be adequately seen to determine if it was significantly enlarged or had abnormal wall motion. The TAPSE was normal suggesting that RV function was normal. Allergies Allergy/AdvReac Type Severity Reaction Status Date / Time No Known Allergies Allergy Unknown Unverified 07/17/22 08:05 Home Medications Medication Instructions Recorded Confirmed Type No Known Home Medications 07/17/22 07/17/22 History Patient History Medical History ALEXANDRO (acute kidney injury) Altered mental status Surgical History No pertinent past surgical history Family History Other Dyslipidemia Hypertension Social History Smoking Status: Never smoker Hx Alcohol Use: No Hx Substance Use: No Preferred Language: Greenlandic Communication Ability: Effective Business Continuity Manager Required: No Beliefs That Will Affect Care: None Current Living Situation: Spouse and Family current occupational status: employed current occupation: [employer] How many Children do You have: 2 Other Information That Helps Us Care for You: No Feels Safe at Home: Yes Review of Systems Review of Systems: Patient denied fevers, chills, cough, dysuria, hematuria, prior blood clots. The remainder of his 12 point review of systems is negative except as per HPI. Physical Exam Constitutional: WD/WN, vitals as above (Morbidly obese) Eyes: Extraocular muscles intact. Sclera are anicteric. ENMT: Oral mucosa is pink, moist, and intact. Neck: Thick, no JVD. Respiratory: Clear to auscultation bilaterally. No wheezing, rhonchi, or rales appreciated. Bases are dull. Cardiovascular: Regular rate and rhythm. S3 gallop. No rubs or murmurs appreciated. No edema. 1-2+ distal pulses Gastrointestinal (Abdomen): Obese. Normal active bowel sounds. Musculoskeletal: no cyanosis or clubbing, extremities motor strength 5/5 Neurologic: Cognition is intact but short term memory is not. Speech is fluent. No focal motor deficits. No tremor. Psychiatric: A+Ox3, euthymic affect Results & Data Vital Signs (Past 12 Hours) Vital Signs Temp Pulse Pulse Resp BP BP BP 07/17/22 14:17 36.6 C 86 18 126/82 07/17/22 13:30 89 20 142/97 H 07/17/22 13:15 105 H 20 130/81 07/17/22 11:30 94 H 24 119/91 07/17/22 11:15 88 22 129/91 07/17/22 11:00 97 H 22 139/97 07/17/22 10:30 90 23 129/89 07/17/22 10:00 87 22 121/91 07/17/22 10:21 91 H 20 131/90 07/17/22 09:15 88 20 129/87 07/17/22 08:30 90 22 123/81 07/17/22 08:41 07/17/22 08:03 136/77 07/17/22 08:03 89 21 07/17/22 08:02 89 18 07/17/22 07:30 84 07/17/22 07:15 138/74 07/17/22 07:15 85 19 07/17/22 07:09 79 25 H 07/17/22 08:09 86 07/17/22 08:10 07/17/22 08:05 07/17/22 07:11 36.7 C 86 22 138/74 Pulse Ox O2 Del Method O2 Flow Rate 07/17/22 14:17 97 Room Air 07/17/22 13:30 96 Room Air 07/17/22 13:15 98 Room Air 07/17/22 11:30 98 Nasal Cannula 4 07/17/22 11:15 99 Nasal Cannula 4 07/17/22 11:00 98 Nasal Cannula 4 07/17/22 10:30 100 2 07/17/22 10:00 99 07/17/22 10:21 99 Nasal Cannula 4 07/17/22 09:15 99 2 07/17/22 08:30 100 Room Air 07/17/22 08:41 100 Nasal Cannula 2 07/17/22 08:03 07/17/22 08:03 100 Nasal Cannula 2 07/17/22 08:02 100 Nasal Cannula 2 07/17/22 07:30 97 Nasal Cannula 2 07/17/22 07:15 07/17/22 07:15 97 07/17/22 07:09 95 07/17/22 08:09 07/17/22 08:10 98 Nasal Cannula 2 07/17/22 08:05 97 Nasal Cannula 2 07/17/22 07:11 97 Nasal Cannula 2 PG Care Time/CCT Total # of Minutes Spent Total Time Spent with Patient: Total time spent is greater than 50% in coordination of care (as documented) at patient's floor/unit and/or counseling patient: Total Critical Care Time: 90 I spent a total of 90 minutes critical care time in the initial evaluation, review of records, discussion with the patient and his family, examination, review of his laboratory data and imaging, review of his echocardiogram, formulation and implementation of a plan of care, discuss that plan of care with the primary team, and documentation of all of the above. [place] [address] CRITICAL CARE 1ST 30-74M Patient Type New Diagnoses Cardiac arrest with ventricular fibrillation I46.9; I49.01 Elevated d-dimer R79.89 Altered mental status R41.82 Hypokalemia E87.6 ALEXANDRO (acute kidney injury) N17.9 UTI (urinary tract infection) N39.0 Leukocytosis D72.829 Time Spent (min) 90
[2022-07-17] MEDS ORDERED: Heparin IV Adult Wt-Based Standard *NO* Bolus Protocol IV SCH (14:45)
[2022-07-17 14:48] LABS: Allen Test Pos (Pos)
[2022-07-17] MEDS: HEPARIN SODIUM/DEXTROSE 25,000 UNITS/500 ML BAG IV SCH (15:09)
--- NOTE | 2022-07-17 17:28 | Ultrasound Report ---
BILATERAL LOWER EXTREMITY VENOUS DOPPLER CLINICAL HISTORY: cardiac arrest COMPARISON STUDY: No previous studies for comparison. TECHNIQUE: Sonography of the deep venous system of the bilateral lower extremities was performed. Co mpression and augmentation were evaluated. FINDINGS: The bilateral common femoral, superficial femoral and popliteal veins were compressible. A ugmentation was normal. Flow was shown within the deep calf vessels. IMPRESSION: No evidence of deep venous thrombus within the bilateral lower extremities. ACT 112: Negative or not required by law. Electronically signed by: Valeriy Falcon M.D. 07/17/2022 5:27 PM
--- NOTE | 2022-07-17 17:29 | Ultrasound Report ---
RIGHT GROIN DOPPLER ULTRASOUND CLINICAL HISTORY: Status post cath evaluate for pseudoaneurysm COMPARISON STUDY: No previous studies for comparison. TECHNIQUE: Clemente scale, color and duplex Doppler sonography of the right groin was performed. FINDINGS: The right common femoral, profunda and superficial femoral arteries are patent. No pseudoan eurysm is identified. No hematoma is identified. IMPRESSION: No right groin hematoma or pseudoaneurysm. Patent right groin vessels. ACT 112: Negative or not required by law. Electronically signed by: Valeriy Falcon M.D. 07/17/2022 5:28 PM
--- NOTE | 2022-07-17 17:47 | Communication Note ---
Date of Service: July 17, 2022 Patient seen and examined chart and records reviewed. 32-year-old male who suffered [id number] cardiac arrest, bystander CPR by and subsequent resuscitation with defibrillation of ventricular fibrillation by EMS. EKG post resuscitation normal Cardiac catheterization without obstructive coronary disease Patient gradually recuperating Plan to continue IV heparin Discussed potential need for pacemaker defibrillator with patient and family Continue telemetry with low threshold low-dose beta-isabelle
[2022-07-17] MEDS ORDERED: ONDANSETRON INJ 2 MG/ML 2 ML VIAL IV PRN (18:12)
[2022-07-17] MEDS: ACETAMINOPHEN 325 MG TAB PO PRN (18:14)
--- NOTE | 2022-07-17 18:16 | Magnetic Resonance Report ---
MRI OF THE BRAIN WITHOUT CONTRAST CLINICAL HISTORY: altered mental status s/p cardiac arrest COMPARISON STUDY: Head CT performed earlier today. TECHNIQUE: Utilizing a 1.5 Jie magnet and dedicated coil, multiplanar, multiecho imaging of the bra in was performed without IV contrast. FINDINGS: There are no foci of restricted diffusion to suggest acute infarct. No acute intracranial h emorrhage, midline shift or mass effect is present. Brain volume is normal. Ventricular system is nor mal. Basal cisterns are patent. There are no extra-axial collections. Flow-voids for the major intrac ranial vessels are present. There are a few possible punctate white matter T2 hyperintense foci withi n the bilateral frontal lobes. These are doubtful significance and may be artifactual. There is polyp oid mucosal thickening of the maxillary sinuses. There is no evidence for acute sinusitis. There is n o mastoid fluid. IMPRESSION: No acute intracranial findings. ACT 112: Negative or not required by law. Electronically signed by: Valeriy Falcon M.D. 07/17/2022 6:13 PM
[2022-07-17] MEDS ORDERED: oxyCODONE HCL IR 5 MG TAB (IMMEDIATE RELEASE) PO PRN (19:37)
[2022-07-17] MEDS ORDERED: PROMETHAZINE HCL 12.5 MG in SODIUM CHLORIDE 0.9% 50 ML IV PRN (19:38)
[2022-07-17] MEDS ORDERED: PROMETHAZINE HCL 12.5 MG in SODIUM CHLORIDE 0.9% 50 ML IV STA (19:39)
[2022-07-17] MEDS ORDERED: oxyCODONE HCL IR 5 MG TAB (IMMEDIATE RELEASE) PO STA (19:39)
--- NOTE | 2022-07-17 19:39 | Communication Note ---
Date of Service: July 17, 2022 Patient with sharp right groin pain at catheter site and emesis as per RN. Transient headache symptoms. Pain on abdominal palpation as per RN Patient noted to be tachycardic and febrile. CT head: No intracranial hemorrhage or other acute intracranial abnormality. CT abdomen pelvis: No acute abnormality identified in the abdomen or pelvis on noncontrast examination. AP Sepsis ? Complicated UTI CS, Cefepime for now
[2022-07-17] MEDS ORDERED: ACETAMINOPHEN 1,000 MG/100 ML VIAL IV STA (19:44)
[2022-07-17] MEDS ORDERED: MAGNESIUM SULFATE / D5W 1 GM/100 ML BAG IV ONE (19:48)
[2022-07-17] MEDS ORDERED: LACTATED RINGER'S 1,000 ML IV ONE (19:50)
--- NOTE | 2022-07-17 20:22 | CT Scan Report ---
Exam(s): CT ABDOMEN + PELVIS Without Contrast EXAM: CT Abdomen and Pelvis Without Intravenous Contrast CLINICAL HISTORY: Reason for exam: abd pain. TECHNIQUE: Axial computed tomography images of the abdomen and pelvis without intravenous contrast. CTDI is 31.74 mGy and DLP is 1876.11 mGy-cm. Automated exposure control was utilized for the study. A dose lowering technique was utilized adhering to the principles of ALARA. COMPARISON: None. FINDINGS: Lung bases: Unremarkable. No mass. No consolidation. ABDOMEN: Liver: Unremarkable. Gallbladder and bile ducts: Vicarious excretion of contrast in the gallbladder. No calcified stones. No ductal dilation. Pancreas: Unremarkable. No ductal dilation. Spleen: Unremarkable. No splenomegaly. Adrenals: Unremarkable. No mass. Kidneys and ureters: Residual contrast is seen in the renal collecting systems and the urinary bladder from prior CT chest angiogram. No obstructing stones. No hydronephrosis. Stomach and bowel: Unremarkable. No obstruction. No mucosal thickening. PELVIS: Appendix: No findings to suggest acute appendicitis. Bladder: See above. Reproductive: Unremarkable as visualized. ABDOMEN and PELVIS: Intraperitoneal space: Unremarkable. No free air. No significant fluid collection. Bones/joints: Mild degenerative change in the spine. No acute fracture. No dislocation. Soft tissues: Unremarkable. Vasculature: Unremarkable. No abdominal aortic aneurysm. Lymph nodes: Unremarkable. No enlarged lymph nodes. IMPRESSION: No acute abnormality identified in the abdomen or pelvis on noncontrast examination. Electronically signed by: Fred Amado MD 07/17/22 20:22 PM
--- NOTE | 2022-07-17 20:32 | CT Scan Report ---
Exam(s): CT HEAD Without Contrast EXAM: CT Head Without Intravenous Contrast CLINICAL HISTORY: Reason for exam: [facility]. TECHNIQUE: Axial computed tomography images of the head/brain without intravenous contrast. CTDI is 51.92 mGy and DLP is 773.57 mGy-cm. Automated exposure control was utilized for the study. A dose lowering technique was utilized adhering to the principles of ALARA. COMPARISON: MRI brain 07/17/2022. CT head 07/17/2022. FINDINGS: Brain: Unremarkable. No hemorrhage. No significant white matter disease. No edema. Ventricles: Unremarkable. No ventriculomegaly. Bones/joints: Unremarkable. No acute fracture. Soft tissues: Unremarkable. Sinuses: Unremarkable as visualized. Mastoid air cells: Unremarkable as visualized. No mastoid effusion. IMPRESSION: No intracranial hemorrhage or other acute intracranial abnormality. Electronically signed by: Fred Amado MD 07/17/22 20:31 PM
[2022-07-17] MEDS: CEFEPIME 2,000 MG in SYRINGE 0 ML IV SCH (21:28)
[2022-07-17 22:06] LABS: Hematocrit (blood only) 40.5 % (42.0-52.0); Hemoglobin 14.3 g/dl (14.0-18.0)
[2022-07-17] MEDS ORDERED: HEPARIN SOD (PORCINE) 1000 UNIT/ML IV ONE (23:15)
[2022-07-18] MEDS ORDERED: LACTATED RINGER'S 1,000 ML IV ONE
[2022-07-18] MEDS: POTASSIUM CHLORIDE / WTR 10 MEQ/100 ML PLCT IV SCH (01:03)
[2022-07-18] MEDS: HEPARIN SODIUM/DEXTROSE 25,000 UNITS/500 ML BAG IV SCH ×2 (05:55→07:59)
[2022-07-18 06:19] LABS: Albumin Globulin Ratio 1.4 (0.9-2); Albumin Level 3.5 gm/dl (3.4-5.0); Bilirubin,Total 0.9 mg/dl (0.2-1.0); Calcium 8.6 mg/dl (8.6-10.3); Creatinine Clr Calc Pharmacy 130.3 ml/min; Est GFR (African American) 106.4 ml/min; Est GFR (Non-African American) 91.8 ml/min; Globulin 2.5 gm/dl (2.5-4.0)
[2022-07-18 06:43] LABS: Partial Thromboplastin Ratio 4.4
[2022-07-18 06:47] LABS: Partial Thromboplastin Time 119.7 Seconds (21.0-31.0)
[2022-07-18 08:45] LABS: Basophils # (auto) 0.03 K/uL (0-0.2); Basophils % (auto) 0.3 %; Eosinophils # (auto) 0.05 K/uL (0-0.50); Eosinophils % (auto) 0.5 %; Hematocrit (blood only) 38.5 % (42.0-52.0); Hemoglobin 13.4 g/dl (14.0-18.0); Immature Granulocytes # (auto) 0.04 K/uL (0.01-0.20); Immature Granulocytes % (auto) 0.4 %; Lymphocytes # (auto) 2.94 K/uL (1.2-3.4); Lymphocytes % (auto) 31.4 %; Mean Corpuscular Hemoglobin 30.1 pg (25.0-34.0); Mean Corpuscular Hgb Conc 34.8 g/dL (32.0-36.0); Mean Corpuscular Volume 86.5 fL (80.0-100.0); Mean Platelet Volume 11.9 fL (9.4-12.4); Monocytes # (auto) 0.69 K/uL (0.11-0.59); Monocytes % (auto) 7.4 %; Neutrophils # (auto) 5.62 K/uL (1.40-6.50); Platelet Count 193 K/uL (130-400); RDW Coefficient of Variation 13.1 % (11.5-14.5); Red Blood Count 4.45 M/uL (4.70-6.10); White Blood Count 9.37 K/ul (4.8-10.8)
[2022-07-18] MEDS: CEFEPIME 2,000 MG in SYRINGE 0 ML IV SCH ×2 (09:14→20:22)
[2022-07-18] MEDS: ACETAMINOPHEN 325 MG TAB PO PRN ×3 (09:20→20:21)
[2022-07-18] MEDS: LIDOCAINE 5% 1 PATCH TD SCH (10:06)
--- NOTE | 2022-07-18 13:28 | Cardiology Progress Note ---
Date of Service July 18, 2022 Assessment & Plan (1) Cardiac arrest with ventricular fibrillation: Plan Patient is a 32-year-old male presented with [id number] cardiovascular arrest receiving bystander CPR and subsequent prompt defibrillation by EMS for observed ventricular fibrillation with return of spontaneous circulation Cardiac catheterization demonstrated normal coronary arteries Patient clinically improving today. Hemodynamically stable no arrhythmias Had multiple discussions with patient and family regarding potential etiologies of cardiac arrest and treatment including primary and secondary prevention. No evidence of acute myocardial infarction on presentation and initial echocardiogram without wall motion abnormality or severe LV impairment EKG without preexcitation or Brugada syndrome. QT normal Plan: Patient and family wish to proceed with repeat chest CT given elevated D- dimer and concerns regarding pulmonary embolus on initial presentation. Clinical presentation and current exam does not suggest massive PE We will repeat echocardiogram in a.m. with attention to both LV and RV function. We will assess for possible acute myocarditis as etiology though no evidence of such by EKG or clinical exam Troponin in a.m. Ultimate goals would include cardiac MRI, stress treadmill, genetic testing as course of evaluation. We will continue beta-isabelle Patient warrants pacer defibrillator for secondary prevention by preliminary evaluation. Discussed with patient and they are considering. Both raise concerns regarding [employer] license are as well as [employer] licensure, both written by defibrillator as well as recent cardiac arrest Patient to be kept n.p.o. after midnight tonight but will reassess promptly in a.m. after above test Admission and Anticipated Discharge Date Admission Date: July 17, 2022 Subjective Patient seen and examined, chart, medications, telemetry reviewed Patient more alert this morning with little recollection of day prior. No chest pains other than mild chest wall discomfort. Hemodynamically stable No arrhythmias on telemetry No significant desaturation on nocturnal oximetry. No hypoxia on room air No fevers or chills. White cell count has returned to normal Review of Systems Review of Systems: All systems reviewed & are unremarkable except as noted in Subjective Results & Data Vital Signs (Past 12 Hours) Vital Signs Temp Pulse Pulse Pulse Resp BP BP 07/18/22 11:37 37.2 C 82 17 133/78 07/18/22 06:20 82 07/18/22 07:34 37.0 C 73 18 108/67 07/18/22 03:49 83 07/18/22 02:31 37 C 80 18 104/66 Pulse Ox Pulse Ox O2 Del Method O2 Del Method 07/18/22 11:37 93 Room Air 07/18/22 06:20 07/18/22 07:34 93 Room Air 07/18/22 03:49 95 Room Air 07/18/22 02:31 95 Room Air Laboratory Results Laboratory Results - last 24 hr 07/17/22 07/17/22 07/17/22 14:13 14:13 21:15 WBC RBC Hgb Hct MCV MCH MCHC RDW Std Deviation RDW Coeff of Ernestina Plt Count MPV Immature Gran % (Auto) Neut % (Auto) Lymph % (Auto) [place] % (Auto) Eos % (Auto) Baso % (Auto) Neut # (Auto) Lymph # (Auto) [place] # (Auto) Eos # (Auto) Baso # (Auto) Immature Gran # (Auto) APTT 28.0 PTT Ratio 1.0 ABG pH 7.38 ABG pCO2 35 ABG pO2 88 ABG HCO3 21 ABG O2 Saturation 98.0 H ABG Base Excess -3.7 Mio Test Pos Oxygen Given 4L Sodium Potassium Chloride Carbon Dioxide Anion Gap BUN Creatinine Est Cr Clr Drug Dosing Est GFR ( Amer) Est GFR (Non-Af Amer) BUN/Creatinine Ratio Glucose Lactate 2.4 H* Calcium Total Bilirubin AST ALT Alkaline Phosphatase Total Protein Albumin Globulin Albumin/Globulin Ratio Procalcitonin SARS-CoV-2, RNA, NAAT 07/17/22 07/17/22 07/17/22 21:15 21:15 21:15 WBC RBC Hgb 14.3 Hct 40.5 L MCV MCH MCHC RDW Std Deviation RDW Coeff of Ernestina Plt Count MPV Immature Gran % (Auto) Neut % (Auto) Lymph % (Auto) [place] % (Auto) Eos % (Auto) Baso % (Auto) Neut # (Auto) Lymph # (Auto) [place] # (Auto) Eos # (Auto) Baso # (Auto) Immature Gran # (Auto) APTT PTT Ratio ABG pH ABG pCO2 ABG pO2 ABG HCO3 ABG O2 Saturation ABG Base Excess Mio Test Oxygen Given Sodium Potassium Chloride Carbon Dioxide Anion Gap BUN Creatinine Est Cr Clr Drug Dosing Est GFR ( Amer) Est GFR (Non-Af Amer) BUN/Creatinine Ratio Glucose Lactate 1.2 Calcium Total Bilirubin AST ALT Alkaline Phosphatase Total Protein Albumin Globulin Albumin/Globulin Ratio Procalcitonin 0.18 SARS-CoV-2, RNA, NAAT 07/17/22 07/18/22 07/18/22 23:30 05:32 05:32 WBC RBC Hgb Hct MCV MCH MCHC RDW Std Deviation RDW Coeff of Ernestina Plt Count MPV Immature Gran % (Auto) Neut % (Auto) Lymph % (Auto) [place] % (Auto) Eos % (Auto) Baso % (Auto) Neut # (Auto) Lymph # (Auto) [place] # (Auto) Eos # (Auto) Baso # (Auto) Immature Gran # (Auto) APTT 119.7 H* PTT Ratio 4.4 ABG pH ABG pCO2 ABG pO2 ABG HCO3 ABG O2 Saturation ABG Base Excess Mio Test Oxygen Given Sodium 136 Potassium 4.0 D Chloride 107 Carbon Dioxide 24 Anion Gap 5 BUN 17 Creatinine 1.06 D Est Cr Clr Drug Dosing 130.3 Est GFR ( Amer) 106.4 Est GFR (Non-Af Amer) 91.8 BUN/Creatinine Ratio 16.0 Glucose 99 Lactate Calcium 8.6 Total Bilirubin 0.9 AST 71 H ALT 188 H Alkaline Phosphatase 49 Total Protein 6.0 Albumin 3.5 Globulin 2.5 Albumin/Globulin Ratio 1.4 Procalcitonin SARS-CoV-2, RNA, NAAT NEGATIVE 07/18/22 05:45 WBC 9.37 D RBC 4.45 L Hgb 13.4 L Hct 38.5 L MCV 86.5 MCH 30.1 MCHC 34.8 RDW Std Deviation 41.0 RDW Coeff of Ernestina 13.1 Plt Count 193 MPV 11.9 Immature Gran % (Auto) 0.4 Neut % (Auto) 60.0 Lymph % (Auto) 31.4 [place] % (Auto) 7.4 Eos % (Auto) 0.5 Baso % (Auto) 0.3 Neut # (Auto) 5.62 Lymph # (Auto) 2.94 [place] # (Auto) 0.69 H Eos # (Auto) 0.05 Baso # (Auto) 0.03 Immature Gran # (Auto) 0.04 APTT PTT Ratio ABG pH ABG pCO2 ABG pO2 ABG HCO3 ABG O2 Saturation ABG Base Excess Mio Test Oxygen Given Sodium Potassium Chloride Carbon Dioxide Anion Gap BUN Creatinine Est Cr Clr Drug Dosing Est GFR ( Amer) Est GFR (Non-Af Amer) BUN/Creatinine Ratio Glucose Lactate Calcium Total Bilirubin AST ALT Alkaline Phosphatase Total Protein Albumin Globulin Albumin/Globulin Ratio Procalcitonin SARS-CoV-2, RNA, NAAT
[2022-07-18] MEDS ORDERED: METOPROLOL SUCC 50MG EXT REL TAB PO ONE (13:49)
--- NOTE | 2022-07-18 14:20 | Electrocardiogram Report ---
Test Reason : Blood Pressure : / mmHG Vent. Rate : 099 BPM Atrial Rate : 099 BPM P-R Int : 140 ms QRS Dur : 098 ms QT Int : 366 ms P-R-T Axes : 010 016 -29 degrees QTc Int : 469 ms Normal sinus rhythm possible Inferior infarct , age undetermined Abnormal ECG Confirmed by Ron Muniz ([id number]) on 07/18/2022 2:20:04 PM Referred By: REFERRED SELF Confirmed By:Dami Muniz
--- NOTE | 2022-07-18 15:59 | Hospitalist Progress Note ---
Date of Service July 18, 2022 Assessment & Plan (1) Cardiac arrest with ventricular fibrillation: (2) ALEXANDRO (acute kidney injury): (3) Altered mental status: Plan Patient is a 32 yr old male who presented with sudden cardiac arrest while at home. administered CPR until EMS arrived and delivered shock x2 via AED with ROSC established. Cardiac arrest with ventricular fibrillation: Patient had abrupt gasping in the middle of the night while sleeping; lost pulse and stopped breathing and initiated CPR and later had shock x2 via AED by EMS and ROSC established. Unclear etiology Suspected pulmonary embolism/Sleep Apnea --CTA:Limited exam without evidence of central, lobar, or segmental embolus. --ECHO: Study was technically difficult. Low normal EF. Possible mild inferior hypokinesis. No significant valve pathology. --Venous Doppler:No evidence of deep venous thrombus within the bilateral lower extremities. --S/P cardiac Cath:No angiographically significant coronary disease. -- Nocturnal Oximetry study:Does not qualify for Oxygen --Will need Sleep study as outpatient -- Hypercoagulable work-up pending --Continue metoprolol IV heparin discontinued Appreciate cardiology input Will need ICD implantation eventually and Cardiac MRI as outpatient Altered mental status Likely anoxic injury MRI Brain:No acute intracranial findings. Negative Tox Screen Memory much improved Consider neurology evaluation if needed Suspected urinary tract infection Empirically on Cefepime Follow up cultures Hypokalemia Replete electrolytes as needed ALEXANDRO: Lactic Acidosis Baseline 0.9-1.0 Cr:1.44>>1.06 Cr Improved with IV fluids Dyslipidemia: -Currently not on statin Obesity: Lifestyle changes DVT Px: Heparin SQ Code Status Full code Admission and Anticipated Discharge Date Admission Date: July 17, 2022 Subjective Patient is seen and examined at bedside States having headache, left-sided rib pain secondary to CPR yesterday Denies any dyspnea, dizziness, nausea, abdominal pain Discussed with patient family at bedside No other complaints Review of Systems Review of Systems: All systems reviewed & are unremarkable except as noted in Subjective Physical Exam Physical Exam: Physical Exam: Vitals signs as noted above General Appearance:Obese, no apparent distress Head: normocephalic, Atraumatic Eyes: normal inspection, EOMI Neck: supple, Trachea midline Respiratory/Chest: Normal breath sounds, CTA, No accessory muscle use Cardiovascular: S1, S2, No murmur Abdomen/GI:Soft, Non tender, Bowel sounds present Extremities/Musculoskeletal:normal inspection, no edema Neurologic/Psych:AAOX3, grossly no focal neurological deficits Skin: normal color, warm Results & Data Results & Data Vital Signs (Past 12 Hours) Vital Signs Temp Pulse Pulse Pulse Resp BP Pulse Ox 07/18/22 15:19 36.8 C 83 18 147/76 H 95 07/18/22 11:37 37.2 C 82 17 133/78 93 07/18/22 06:20 82 07/18/22 07:34 37.0 C 73 18 108/67 93 07/18/22 03:49 83 Pulse Ox O2 Del Method O2 Del Method 07/18/22 15:19 Room Air 07/18/22 11:37 Room Air 07/18/22 06:20 07/18/22 07:34 Room Air 07/18/22 03:49 95 Room Air Laboratory Results Short CBC 07/17/22 07/18/22 Range/Units 21:15 05:45 WBC 9.37 D (4.8-10.8) K/ul Hgb 14.3 13.4 L (14.0-18.0) g/dl Hct 40.5 L 38.5 L (42.0-52.0) % Plt Count 193 (130-400) K/uL BMP 07/18/22 05:32 Sodium 136 Potassium 4.0 D Chloride 107 Carbon Dioxide 24 BUN 17 Creatinine 1.06 D Glucose 99 Calcium 8.6 Liver Function 07/18/22 Range/Units 05:32 Total Bilirubin 0.9 (0.2-1.0) mg/dl AST 71 H (13-39) U/L ALT 188 H (7-52) U/L Alkaline Phosphatase 49 (34-104) U/L Albumin 3.5 (3.4-5.0) gm/dl
[2022-07-18 16:52] LABS: Partial Thromboplastin Ratio 1.9
[2022-07-18 17:07] LABS: Partial Thromboplastin Time 51.8 Seconds (21.0-31.0)
[2022-07-18] MEDS ORDERED: SODIUM CHLORIDE 0.9% 1000ML 1,000 ML IV ONE (21:00)
[2022-07-18] MEDS: HEPARIN SOD 5,000 UNIT/0.5 ML VIAL SQ SCH (22:28)
[2022-07-18] MEDS: METOPROLOL SUCC 25MG EXT REL TAB PO SCH (22:29)
[2022-07-19] MEDS: HEPARIN SOD 5,000 UNIT/0.5 ML VIAL SQ SCH ×3 (06:01→21:20)
[2022-07-19 07:17] LABS: Hemoglobin 13.3 g/dl (14.0-18.0); Mean Corpuscular Hemoglobin 29.6 pg (25.0-34.0); Mean Corpuscular Hgb Conc 34.1 g/dL (32.0-36.0); Mean Corpuscular Volume 86.7 fL (80.0-100.0); Mean Platelet Volume 11.3 fL (9.4-12.4); Platelet Count 199 K/uL (130-400); RDW Coefficient of Variation 12.8 % (11.5-14.5); RDW Standard Deviation 40.2 fL (36.4-46.3); White Blood Count 6.87 K/ul (4.8-10.8)
[2022-07-19 07:47] LABS: Albumin Globulin Ratio 1.4 (0.9-2); Albumin Level 3.7 gm/dl (3.4-5.0); BUN Creatinine Ratio 15.5 (10-20); Bilirubin,Total 0.8 mg/dl (0.2-1.0); Creatinine Clr Calc Pharmacy 140.6 ml/min; Est GFR (African American) 118.4 ml/min; Est GFR (Non-African American) 102.2 ml/min; Globulin 2.7 gm/dl (2.5-4.0); Magnesium 1.9 mg/dl (1.7-2.4); Potassium 4.1 mmol/L (3.5-5.1); Total Protein 6.4 gm/dl (6.0-8.3)
[2022-07-19] MEDS: LIDOCAINE 5% 1 PATCH TD SCH (07:58)
[2022-07-19] MEDS: CEFEPIME 2,000 MG in SYRINGE 0 ML IV SCH (07:59)
[2022-07-19 08:02] LABS: Troponin I High Sensitivity 653.5 pg/ml (0-20)
[2022-07-19] MEDS: METOPROLOL SUCC 25MG EXT REL TAB PO SCH ×2 (08:02→21:18)
[2022-07-19] MEDS ORDERED: OPTIRAY 320 500ml IV ONE (10:51)
--- NOTE | 2022-07-19 11:29 | Electrocardiogram Report ---
Test Reason : Blood Pressure : / mmHG Vent. Rate : 062 BPM Atrial Rate : 062 BPM P-R Int : 154 ms QRS Dur : 100 ms QT Int : 440 ms P-R-T Axes : 005 009 -16 degrees QTc Int : 446 ms Normal sinus rhythm possible Inferior infarct (cited on or before 18-JUL-2022) Abnormal ECG When compared with ECG of 18-JUL-2022 12:04, Vent. rate has decreased BY 37 BPM Confirmed by Ron Muniz ([id number]) on 07/19/2022 11:28:52 AM Referred By: REFERRED SELF Confirmed By:Dami Muniz
--- NOTE | 2022-07-19 11:34 | CT Scan Report ---
CT ANGIOGRAPHY OF THE CHEST, PULMONARY EMBOLUS PROTOCOL CLINICAL HISTORY: Respiratory illness. Evaluate for pulmonary embolus. COMPARISON STUDY: Chest CT and chest radiograph July 17, 2012. TECHNIQUE: Following IV administration of 118 mL of Optiray, helical axial images of the chest were o btained utilizing the pulmonary embolus protocol. Maximal intensity projections and sagittal and cor onal reformats were viewed on an independent 3D workstation. IV contrast was administered without co mplication. Automated exposure control was utilized for the study. A dose lowering technique was ut ilized adhering to the principles of ALARA. CT DOSE: 818.84 mGy.cm FINDINGS: No pulmonary emboli are identified although the segmental and subsegmental pulmonary arter ies within the lower lobes are suboptimally assessed due to respiratory motion artifact. There is no thoracic aortic dissection. Mild cardiomegaly is noted. There is no pericardial effusion. There are t race bilateral pleural effusions. Linear and groundglass opacities represent atelectasis. There is no consolidation to suggest pneumonia. There is no pneumothorax. No thoracic lymphadenopathy is present . There is hyperdense material within the gallbladder. This could reflect vicarious excretion of cont rast. IMPRESSION: 1. No pulmonary emboli identified although lower lobe segmental and subsegmental pulmonary arteries s uboptimally assessed, as described above. 2. Mild cardiomegaly. Trace bilateral pleural effusions. 3. No consolidation to suggest pneumonia. ACT 112: Negative or not required by law. Electronically signed by: Valeriy Falcon M.D. 07/19/2022 11:32 AM
--- NOTE | 2022-07-19 14:24 | Cardiology Progress Note ---
Date of Service July 19, 2022 Assessment & Plan (1) Cardiac arrest with ventricular fibrillation: Plan Patient is a 32-year-old male presented with [id number] cardiovascular arrest receiving bystander CPR and subsequent prompt defibrillation by EMS for observed ventricular fibrillation with return of spontaneous circulation Cardiac catheterization demonstrated normal coronary arteries Patient clinically improving today. Hemodynamically stable no arrhythmias Had multiple discussions with patient and family regarding potential etiologies of cardiac arrest and treatment including primary and secondary prevention. No evidence of acute myocardial infarction on presentation and initial echocardiogram without wall motion abnormality or severe LV impairment EKG without preexcitation or Brugada syndrome. QT normal EKG this morning without change with isolated Q-wave lead III only. Echocardiogram EF 50-55% without wall motion abnormality or RV dysfunction Impression: Tii-[id number] cardiovascular arrest with ventricular fibrillation with successful bystander CPR and defibrillation. No acute culprit discerned. No acute myocardial infarction or coronary obstruction. LV systolic function normal Plan: Discussed out of hospital cardiovascular arrest with patient and family. Ultimate goals should be secondary prevention with pacer defibrillator. Patient wishes procedure to be performed at [facility] in [place] with further evaluation. We will make arrangements for LifeVest Continue low-dose beta-isabelle No strenuous activity or driving Arrangements made for appointment with Dr. Janki Vaughan [facility] next week Attempting expedited cardiac MRI in interim Admission and Anticipated Discharge Date Admission Date: July 17, 2022 Subjective Patient seen and examined, chart, medications, telemetry reviewed. No acute complaints other than right ribs sore. Slept well last night no arrh ythmias. No desaturation or hypoxia. Heart rate and blood pressure well controlled on current therapies. No fevers chills unexplained infections. Echocardiogram with preserved wall motion and LV function this morning. Results & Data Vital Signs (Past 12 Hours) Vital Signs Temp Pulse Pulse Resp BP BP Pulse Ox 07/19/22 11:47 36.8 C 63 19 129/75 95 07/19/22 07:33 66 07/19/22 06:35 37.0 C 57 L 16 127/78 96 07/19/22 03:13 36.8 C 67 18 142/72 H 95 O2 Del Method 07/19/22 11:47 Room Air 07/19/22 07:33 07/19/22 06:35 Room Air 07/19/22 03:13 Room Air Laboratory Results Laboratory Results - last 24 hr 07/17/22 07/18/22 07/18/22 12:30 14:37 17:24 WBC RBC Hgb Hct MCV MCH MCHC RDW Std Deviation RDW Coeff of Ernestina Plt Count MPV APTT 51.8 H* PTT Ratio 1.9 Sodium Potassium Chloride Carbon Dioxide Anion Gap BUN Creatinine Est Cr Clr Drug Dosing Est GFR ( Amer) Est GFR (Non-Af Amer) BUN/Creatinine Ratio Glucose Calcium Magnesium Total Bilirubin AST ALT Alkaline Phosphatase Troponin I High Sens 894.2 H* D Total Protein Albumin Globulin Albumin/Globulin Ratio Homocysteine 8.6 07/19/22 07/19/22 06:22 06:22 WBC 6.87 RBC 4.50 L Hgb 13.3 L Hct 39.0 L MCV 86.7 MCH 29.6 MCHC 34.1 RDW Std Deviation 40.2 RDW Coeff of Ernestina 12.8 Plt Count 199 MPV 11.3 APTT PTT Ratio Sodium 137 Potassium 4.1 Chloride 107 Carbon Dioxide 25 Anion Gap 5 BUN 15 Creatinine 0.97 Est Cr Clr Drug Dosing 140.6 Est GFR ( Amer) 118.4 Est GFR (Non-Af Amer) 102.2 BUN/Creatinine Ratio 15.5 Glucose 86 Calcium 9.0 Magnesium 1.9 Total Bilirubin 0.8 AST 39 ALT 144 H Alkaline Phosphatase 50 Troponin I High Sens 653.5 H* D Total Protein 6.4 Albumin 3.7 Globulin 2.7 Albumin/Globulin Ratio 1.4 Homocysteine
--- NOTE | 2022-07-19 16:29 | Hospitalist Progress Note ---
Date of Service July 19, 2022 Assessment & Plan (1) Cardiac arrest with ventricular fibrillation: (2) ALEXANDRO (acute kidney injury): (3) Altered mental status: Plan Patient is a 32 yr old male who presented with sudden cardiac arrest while at home. administered CPR until EMS arrived and delivered shock x2 via AED with ROSC established. Cardiac arrest with ventricular fibrillation: Patient had abrupt gasping in the middle of the night while sleeping; lost pulse and stopped breathing and initiated CPR and later had shock x2 via AED by EMS and ROSC established. Unclear etiology Suspected pulmonary embolism/Sleep Apnea --CTA:Limited exam without evidence of central, lobar, or segmental embolus. --ECHO: Study was technically difficult. Low normal EF. Possible mild inferior hypokinesis. No significant valve pathology. --Venous Doppler:No evidence of deep venous thrombus within the bilateral lower extremities. --S/P cardiac Cath:No angiographically significant coronary disease. -- Nocturnal Oximetry study:Does not qualify for Oxygen --Will need Sleep study as outpatient -- Hypercoagulable work-up pending --Repeat CTA:No pulmonary emboli identified although lower lobe segmental and subsegmental pulmonary arteries suboptimally assessed, as described above. Mild cardiomegaly. Trace bilateral pleural effusions. No consolidation to suggest pneumonia. --Repeat ECHO: Left ventricle is normal in size. Normal left ventricle wall thickness. Left ventricle wall motion is normal. EF 50-55%. Right ventricle is normal in size and function. No valvular disease. --Continue metoprolol 12.5 mg twice daily IV heparin discontinued Appreciate cardiology input Will need ICD implantation eventually and Cardiac MRI as outpatient Patient/family wishes for ICD placement in [facility] to be arranged for [facility]Vest Needs follow-up with cardiology upon discharge Altered mental status Likely anoxic injury MRI Brain:No acute intracranial findings. Negative Tox Screen Memory much improved Abnormal urinalysis Ruled out UTI Urine culture negative Asymptomatic Cefepime discontinued Hypokalemia Replete electrolytes as needed ALEXANDRO: Lactic Acidosis Baseline 0.9-1.0 Cr:1.44>>1.06>0.97 Cr Improved with IV fluids Dyslipidemia: -Currently not on statin Obesity: Lifestyle changes DVT Px: Heparin SQ Code Status Full code Admission and Anticipated Discharge Date Admission Date: July 17, 2022 Subjective Patient is seen and examined at bedside Headache resolved Still has some left-sided rib pain Discussed with Cardiology today Denies any dyspnea, dizziness, nausea, abdominal pain Also discussed with patient family at bedside Reports dry cough Review of Systems Review of Systems: All systems reviewed & are unremarkable except as noted in Subjective Physical Exam Physical Exam: Physical Exam: Vitals signs as noted above General Appearance:Obese, no apparent distress Head: normocephalic, Atraumatic Eyes: normal inspection, EOMI Neck: supple, Trachea midline Respiratory/Chest: Normal breath sounds, CTA, No accessory muscle use Cardiovascular: S1, S2, No murmur Abdomen/GI:Soft, Non tender, Bowel sounds present Extremities/Musculoskeletal:normal inspection, no edema Neurologic/Psych:AAOX3, grossly no focal neurological deficits Skin: normal color, warm Results & Data Results & Data Vital Signs (Past 12 Hours) Vital Signs Temp Pulse Pulse Pulse Resp BP BP 07/19/22 15:47 37.3 C 73 18 148/71 H 07/19/22 11:47 36.8 C 63 19 129/75 07/19/22 07:33 66 07/19/22 06:35 37.0 C 57 L 16 127/78 Pulse Ox O2 Del Method 07/19/22 15:47 96 Room Air 07/19/22 11:47 95 Room Air 07/19/22 07:33 07/19/22 06:35 96 Room Air Laboratory Results Short CBC 07/19/22 Range/Units 06:22 WBC 6.87 (4.8-10.8) K/ul Hgb 13.3 L (14.0-18.0) g/dl Hct 39.0 L (42.0-52.0) % Plt Count 199 (130-400) K/uL BMP 07/19/22 06:22 Sodium 137 Potassium 4.1 Chloride 107 Carbon Dioxide 25 BUN 15 Creatinine 0.97 Glucose 86 Calcium 9.0 Liver Function 07/19/22 Range/Units 06:22 Total Bilirubin 0.8 (0.2-1.0) mg/dl AST 39 (13-39) U/L ALT 144 H (7-52) U/L Alkaline Phosphatase 50 (34-104) U/L Albumin 3.7 (3.4-5.0) gm/dl
[2022-07-20] MEDS: HEPARIN SOD 5,000 UNIT/0.5 ML VIAL SQ SCH (06:27)
[2022-07-20 06:49] LABS: Hemoglobin 13.9 g/dl (14.0-18.0); Mean Corpuscular Hgb Conc 34.8 g/dL (32.0-36.0); Mean Corpuscular Volume 86.4 fL (80.0-100.0); Mean Platelet Volume 10.9 fL (9.4-12.4); Platelet Count 209 K/uL (130-400); RDW Coefficient of Variation 12.5 % (11.5-14.5); RDW Standard Deviation 39.7 fL (36.4-46.3); Red Blood Count 4.63 M/uL (4.70-6.10); White Blood Count 6.86 K/ul (4.8-10.8)
[2022-07-20 07:16] LABS: Albumin Globulin Ratio 1.3 (0.9-2); Albumin Level 3.9 gm/dl (3.4-5.0); BUN Creatinine Ratio 17.1 (10-20); Bilirubin,Total 0.8 mg/dl (0.2-1.0); Calcium 9.2 mg/dl (8.6-10.3); Creatinine Clr Calc Pharmacy 129.8 ml/min; Est GFR (African American) 107.6 ml/min; Est GFR (Non-African American) 92.8 ml/min; Magnesium 1.8 mg/dl (1.7-2.4); Potassium 3.9 mmol/L (3.5-5.1); Total Protein 6.9 gm/dl (6.0-8.3)
[2022-07-20] MEDS: LIDOCAINE 5% 1 PATCH TD SCH (07:48)
[2022-07-20] MEDS: METOPROLOL SUCC 25MG EXT REL TAB PO SCH (07:51)
--- NOTE | 2022-07-20 13:00 | Hospitalist Progress Note ---
Date of Service July 20, 2022 Assessment & Plan (1) Cardiac arrest with ventricular fibrillation: (2) ALEXANDRO (acute kidney injury): (3) Altered mental status: Plan Patient is a 32 yr old male who presented with sudden cardiac arrest while at home. administered CPR until EMS arrived and delivered shock x2 via AED with ROSC established. Cardiac arrest with ventricular fibrillation: Patient had abrupt gasping in the middle of the night while sleeping; lost pulse and stopped breathing and initiated CPR and later had shock x2 via AED by EMS and ROSC established. Unclear etiology Suspected pulmonary embolism/Sleep Apnea --CTA:Limited exam without evidence of central, lobar, or segmental embolus. --ECHO: Study was technically difficult. Low normal EF. Possible mild inferior hypokinesis. No significant valve pathology. --Venous Doppler:No evidence of deep venous thrombus within the bilateral lower extremities. --S/P cardiac Cath:No angiographically significant coronary disease. -- Nocturnal Oximetry study:Does not qualify for Oxygen --Will need Sleep study as outpatient -- Hypercoagulable work-up pending --Repeat CTA:No pulmonary emboli identified although lower lobe segmental and subsegmental pulmonary arteries suboptimally assessed, as described above. Mild cardiomegaly. Trace bilateral pleural effusions. No consolidation to suggest pneumonia. --Repeat ECHO: Left ventricle is normal in size. Normal left ventricle wall thickness. Left ventricle wall motion is normal. EF 50-55%. Right ventricle is normal in size and function. No valvular disease. --Continue metoprolol 12.5 mg twice daily IV heparin discontinued Appreciate cardiology input Will need ICD implantation eventually and Cardiac MRI as outpatient Patient/family wishes for ICD placement in [facility] arranged Needs follow-up with cardiology upon discharge Continue current management Altered mental status Likely anoxic injury MRI Brain:No acute intracranial findings. Negative Tox Screen Memory much improved Abnormal urinalysis Ruled out UTI Urine culture negative Asymptomatic Cefepime discontinued Hypokalemia Replete electrolytes as needed ALEXANDRO: Lactic Acidosis Baseline 0.9-1.0 Cr:1.44>>1.0 Cr Improved with IV fluids Dyslipidemia: -Currently not on statin Obesity: Lifestyle changes DVT Px: Heparin SQ Code Status Full code Disposition Home Admission and Anticipated Discharge Date Admission Date: July 17, 2022 Subjective Patient is seen and examined at bedside States feeling well today No new complaints left-sided rib pain much improved Denies any dyspnea, dizziness, nausea, abdominal pain Review of Systems Review of Systems: All systems reviewed & are unremarkable except as noted in Subjective Physical Exam Physical Exam: Physical Exam: Vitals signs as noted above General Appearance:Obese, no apparent distress Head: normocephalic, Atraumatic Eyes: normal inspection, EOMI Neck: supple, Trachea midline Respiratory/Chest: Normal breath sounds, CTA, No accessory muscle use Cardiovascular: S1, S2, No murmur Abdomen/GI:Soft, Non tender, Bowel sounds present Extremities/Musculoskeletal:normal inspection, no edema Neurologic/Psych:AAOX3, grossly no focal neurological deficits Skin: normal color, warm Results & Data Results & Data Vital Signs (Past 12 Hours) Vital Signs Temp Pulse Resp BP Pulse Ox O2 Del Method 07/20/22 11:44 37.0 C 67 18 125/72 96 Room Air 07/20/22 07:32 36.9 C 53 L 18 126/65 93 Room Air 07/20/22 02:51 36.7 C 66 18 123/73 96 Room Air Laboratory Results Short CBC 07/20/22 Range/Units 06:12 WBC 6.86 (4.8-10.8) K/ul Hgb 13.9 L (14.0-18.0) g/dl Hct 40.0 L (42.0-52.0) % Plt Count 209 (130-400) K/uL BMP 07/20/22 06:12 Sodium 137 Potassium 3.9 Chloride 103 Carbon Dioxide 29 BUN 18 Creatinine 1.05 Glucose 90 Calcium 9.2 Liver Function 07/20/22 Range/Units 06:12 Total Bilirubin 0.8 (0.2-1.0) mg/dl AST 42 H (13-39) U/L ALT 137 H (7-52) U/L Alkaline Phosphatase 60 (34-104) U/L Albumin 3.9 (3.4-5.0) gm/dl
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
--- NOTE | 2022-07-20 13:19 | Cardiology Progress Note ---
Date of Service July 20, 2022 Assessment & Plan (1) Cardiac arrest with ventricular fibrillation: Plan Patient is a 32-year-old male presented with [id number] cardiovascular arrest receiving bystander CPR and subsequent prompt defibrillation by EMS for observed ventricular fibrillation with return of spontaneous circulation Cardiac catheterization demonstrated normal coronary arteries Patient clinically improving today. Hemodynamically stable no arrhythmias Had multiple discussions with patient and family regarding potential etiologies of cardiac arrest and treatment including primary and secondary prevention. No evidence of acute myocardial infarction on presentation and initial echocardiogram without wall motion abnormality or severe LV impairment EKG without preexcitation or Brugada syndrome. QT normal EKG this morning without change with isolated Q-wave lead III only. Echocardiogram EF 50-55% without wall motion abnormality or RV dysfunction Impression: [id number]-[id number] cardiovascular arrest with ventricular fibrillation with successful bystander CPR and defibrillation. No acute culprit discerned. No acute myocardial infarction or coronary obstruction. LV systolic function normal Plan: Discussed out of hospital cardiovascular arrest with patient and family. Ultimate goals should be secondary prevention with pacer defibrillator. Patient wishes procedure to be performed at [facility] in [place] with further evaluation. We will make arrangements for LifeVest Continue low-dose beta-isabelle No strenuous activity or driving Arrangements made for appointment with Dr. Janki Vaughan [facility] next week Attempting expedited cardiac MRI in interim Update 07/20/[address]. Patient anxious for discharge Has already received a call to schedule cardiac MRI Anxious for discharge, okay to discharge from a cardiac standpoint Continue current medications, okay to change metoprolol succinate to 25 mg daily for ease of use Admission and Anticipated Discharge Date Admission Date: July 17, 2022 Subjective Pt seen and examined. Chart reviewed. Tele reviewed. LifeVest placed this AM. Anxious for discharge. No complaints Review of Systems Review of Systems: All systems reviewed & are unremarkable except as noted in HPI & below Physical Exam Physical Exam: Physical Exam: General: Awake, alert and oriented x 3. No acute distress. HEENT: Normocephalic, atraumatic. Pupils equal, round and reactive to light and accommodation. Extraocular muscles are intact. Anicteric sclera. Moist mucous membranes. Neck: No JVD. No bruit. Cardiovascular: Regular. No S-4. Normal S-1 and S-2. No S-3. No murmurs, rubs or gallops. Pulmonary: Clear to auscultation bilaterally. No rales, rhonchi, or wheezing. Abdomen: Bowel sounds x 4, soft. No rebound, guarding or tenderness. No organomegaly. Extremities: No clubbing, cyanosis or edema. +2 pedal pulses bilaterally. Skin: Warm and dry. Results & Data Vital Signs (Past 12 Hours) Vital Signs Temp Pulse Resp BP Pulse Ox O2 Del Method 07/20/22 11:44 37.0 C 67 18 125/72 96 Room Air 07/20/22 07:32 36.9 C 53 L 18 126/65 93 Room Air 07/20/22 02:51 36.7 C 66 18 123/73 96 Room Air
[2022-07-22 19:33] LABS: Factor 5 Mutation NEGATIVE
[2022-07-23 07:32] LABS: Anti Cardiolipin Ab IgG <2.0 GPL-U/mL; B2 Glycoprotein IgG <2.0 U/mL (<20.0); PTT LA Screen 30 sec (<=40); Protein S Functional(Activity) 71 % normal (70-150)
== END 2022-07-20 14:21 | disposition home or self-care (01) | DRG 287 ==
LOC: ED 06:55 → EDINP 08:36 → SUATTDRO 08:36 → EDINP 11:50 → 2S 13:58
PROC: CLB.CCO (2022-07-17 12:00)